=== PATIENT | male | born 1995 | race Caucasian/White ===

== ENCOUNTER 2022-12-18 09:55 | Emergency (ER) | payer BC, SELFPAY ==
--- NOTE | ~2022-12-18 | CT_ITS ---
EXAMINATION: CT brain wo con DATE: 12/18/2022 13:20 INDICATION: Acute headache TECHNIQUE: Computed tomography (CT) of the head was performed without intravenous contrast. Sagittal and coronal reconstructions were performed. The mA was adjusted according to patient size. Iterative reconstruction technique was employed. The dose-length product was 605.33 mGy-cm. COMPARISON: None FINDINGS: No acute intracranial hemorrhage, acute infarction or abnormal extra axial fluid collection. Ventricl es are normal and symmetric. No mass/mass effect. The orbits, paranasal sinuses and mastoid air cells are normal. IMPRESSION: 1. Normal head CT. Reviewed, dictated and finalized at location A. IMPRESSION: 1. Normal head CT.
[2022-12-18 10:47] VITALS: BP 151/97; PULSE 79; RESP 16; TEMP 36.3; O2SAT 100
[2022-12-18 12:02] VITALS: BP 140/96; PULSE 78; RESP 16; O2SAT 100
[2022-12-18 12:03] VITALS: O2SAT 100
--- NOTE | 2022-12-18 12:54 | ED.GENADULT ---
HPI - General Adult General Chief complaint: Headache Stated complaint: headache x 1 week Time Seen by Provider: 12/18/22 11:58 History of Present Illness HPI narrative: 27-year-old male presented to ED for evaluation of posterior left-sided headache. Patient reports headache has been going on for the last week. Patient states approximately 1 week ago he was doing some yard work and did strike the back of his head. Patient denies any loss conscious at that time. Patient reports reproducible tenderness to the left posterior scalp with pain that radiates across his left scalp. Patient denies any associated nausea vomiting diarrhea. Patient denies any change in vision. Patient denies any loss of bowel or bladder control. Patient has no prior history of headaches. Patient has been taking ibuprofen for pain control without any significant improvement. Patient did present to the prompt care for evaluation but was referred to the emergency department for further evaluation. Related Data Allergies Allergy/AdvReac Type Severity Reaction Status Date / Time Penicillins Allergy Unknown Rash Verified 12/18/22 09:56 Review of Systems Review of Systems: All systems reviewed & are unremarkable except as noted in HPI and below PMFSH Family History Family History (Updated 12/23/17 @ 17:18 by DOCTOR UNKNOWN) Other Hypertension Social History Social History Alcohol intake: current Exam Narrative: APPEARANCE: Well appearing, no pain, no distress, well-nourished. HEAD: normocephalic, atraumatic. EYES: PERRLA/EOMI, conjunctivae clear. NOSE: Normal no drainage EARS:TMS clear with good light reflex. THROAT: Pharynx clear, no exudate. NECK: Supple. No adenopathy, no masses. RESPIRATORY: Airway patent, respirations nonlabored. Clear to auscultation bilaterally, no rales, rhonchi, wheezing. CARDIOVASCULAR: Regular rate and rhythm without murmurs rubs or gallops. ABDOMINAL: Soft, nontender, nondistended, normal bowel sounds MUSCULOSKELETAL: Moves all extremities. Strength/ROM intact, No edema, No calf tenderness. NEURO: Alert. Cranial nerves II through XII intact. Normal Romberg, normal forward and backward tandem gait. Normal toe stand and heel stand. SKIN: Warm, dry. Normal Color Course Course Emergency Course: 27-year-old male presented ED for evaluation of of headache. Patient was updated the results of his exam. Patient was explained why we were getting a head CT to rule out for acute injury. Patient is being provided IV medications for migraine/pain control. Head CT was negative for acute finding. Patient does feel improved. Patient declined any additional Toradol. Patient was encouraged of close follow-up with his primary care physician. All question concerns were addressed. Suspect a muscular strain due to the patient having no light sensitivity nausea vomiting vision changes but having some pain with range of motion of the neck. Patient was advised to do Tylenol ibuprofen and Flexeril for symptom control. Vital Signs Vital signs: Vital Signs Temperature 97.4 F L 12/18/22 10:47 Pulse Rate 79 12/18/22 10:47 Respiratory Rate 16 12/18/22 10:47 Blood Pressure 151/97 H 12/18/22 10:47 Pulse Oximetry 100 12/18/22 10:47 Oxygen Delivery Room Air 12/18/22 10:47 Temperature 97.8 F 12/18/22 14:23 Pulse Rate 63 12/18/22 14:23 Respiratory Rate 16 12/18/22 14:23 Blood Pressure 138/88 12/18/22 14:23 Pulse Oximetry 100 12/18/22 14:23 Oxygen Delivery Room Air 12/18/22 10:47 Medical Decision Making Differential Diagnosis Differential Diagnosis: Muscular strain, neck pain, intravascular injury, skull fracture, migraine Vital Signs Vital Signs: Vital Signs Temperature 97.4 F L 12/18/22 10:47 Pulse Rate 79 12/18/22 10:47 Respiratory Rate 16 12/18/22 10:47 Blood Pressure 151/97 H 12/18/22 10:47 Pulse Oximetry 100 12/18/22 10:47 Oxygen Delivery Room Air
[2022-12-18 13:05] VITALS: BP 146/91; O2SAT 100
[2022-12-18] MEDS: SODIUM CHLORIDE 0.9% IV 1,000 ML 999 ML IV CONT (13:08)
[2022-12-18] MEDS: PROCHLORPERAZINE EDISYLATE 10 MG/2 ML VIAL IV PUSH (13:08)
[2022-12-18] MEDS: CYCLOBENZAPRINE HCL 10 MG TABLET PO (13:08)
[2022-12-18] MEDS: diphenhydrAMINE HCl INJ 50 MG/ML VIAL 25 MG IV PUSH (13:08)
[2022-12-18 14:23] VITALS: BP 138/88; PULSE 63; RESP 16; TEMP 36.6; O2SAT 100
== END 2022-12-18 14:24 | disposition home or self-care (01) ==
PROVIDERS: Emergency Provider Emergency Medicine
DX: R51.9 Headache, unspecified (principal); I10 Essential (primary) hypertension
CPT/HCPCS: 70450; 96361; 96374; 96375; 99284; A9270; J0780; J1200; J7030